=== PATIENT | female | born 1970 | race Caucasian/White ===

== ENCOUNTER 2017-05-15 23:26 | Emergency (ER) | payer SELFPAY ==
[2017-05-16] MEDS: IBUPROFEN 800 MG TABLET. PO ×2 (00:15)
[2017-05-16] MEDS: ONDANSETRON ODT 4 MG TAB.RAPDIS. PO ×2 (00:15)
[2017-05-16] MEDS: ACETAMINOPHEN 500 MG TABLET PO ×2 (00:15)
[2017-05-16 00:18] LABS: BILIRUBIN,URINE NEGATIVE (NEG); CLARITY,URINE CLEAR; COLOR,URINE YELLOW; GLUCOSE,URINE NEGATIVE (NEG); NITRITE,URINE POSITIVE (NEG); PROTEIN,URINE NEGATIVE (NEG-TRACE)
[2017-05-16 00:19] LABS: INFLUENZA A PATIENT NEGATIVE (NEGATIVE)
[2017-05-16 00:20] LABS: INFLUENZA B PATIENT POSITIVE (NEGATIVE); OBC FLU VALID
[2017-05-16] MEDS: DICYCLOMINE HCL 10 MG CAPSULE PO ×2 (00:27)
[2017-05-16 00:33] LABS: BACTERIA,URINE MANY /HPF (0-FEW); RBC,URINE 0 /HPF (0-2); SQUAMOUS EPITHELIAL CELL,UR MOD /LPF
== END 2017-05-16 00:32 | disposition home or self-care (01) ==
LOC: ER 23:26
DX: J10.1 Influenza due to other identified influenza virus with other respiratory manifestations (principal); I10 Essential (primary) hypertension; E03.9 Hypothyroidism, unspecified
CPT/HCPCS: 81001; 87804; 87804-59; 99284; Q0162

== ENCOUNTER 2017-11-07 00:23 | Emergency (ER) | payer SELFPAY ==
[2017-11-07] MEDS: predniSONE 20 MG TABLET PO (01:05)
== END 2017-11-07 01:05 | disposition home or self-care (01) ==
LOC: ER 00:23
DX: M65.311 Trigger thumb, right thumb (principal); M65.351 Trigger finger, right little finger; I10 Essential (primary) hypertension; E03.9 Hypothyroidism, unspecified
CPT/HCPCS: 99283; J7512

== ENCOUNTER 2020-05-01 17:41 | Emergency (ER) | payer OTHER ==
[2017-11-07 01:05] VITALS: BP 107/71
[~2020-05-01] VITALS: Ht 162.6 cm; Wt 54.5 kg
[~2020-05-01 17:41] MED LIST: CYCL10TA2 PO; LIDO20SO PO; NAPR500T8 PO; ONDA4TAB10 SL; OSEL75CA PO; PRED20TA PO; PRED50TA PO
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
== END 2020-05-01 18:17 | disposition left against medical advice (07) ==
LOC: ER 17:41
DX: S13.4XXA Sprain of ligaments of cervical spine, initial encounter (principal); R07.89 Other chest pain; M54.2 Cervicalgia; I10 Essential (primary) hypertension; E03.9 Hypothyroidism, unspecified; F17.200 Nicotine dependence, unspecified, uncomplicated; V98.8XXA Other specified transport accidents, initial encounter; Y93.89 Activity, other specified; Y92.413 State road as the place of occurrence of the external cause; Y99.8 Other external cause status
CPT/HCPCS: 99283